=== PATIENT | female | born 1970 | race Caucasian/White ===

== ENCOUNTER 2020-06-01 09:39 | Outpatient (REF) | payer OTHER, SELFPAY ==
[2020-06-02 09:34] LABS: CT PCR NOT DETECTED (Not Detect.); NG PCR NOT DETECTED (Not Detect.)
[2020-06-02 09:51] LABS: BV Int Neg Control Negative (Negative); BV Int Pos Control Positive (Positive)
== END 2020-06-01 09:40 | disposition home or self-care (01) ==
LOC: HO.LAB 09:39
PROVIDERS: PCP Internal Medicine; Visit Provider Advanced Practice Midwife
DX: R10.9 Unspecified abdominal pain (principal); N90.89 Other specified noninflammatory disorders of vulva and perineum
CPT/HCPCS: 87480; 87491; 87510; 87591; 87660; 99202

== ENCOUNTER 2020-08-10 08:16 | Outpatient (REF) | payer OTHER, SELFPAY ==
--- NOTE | 2020-08-10 | US_ITS ---
EXAMINATION: US ABDOMEN COMPLETE CLINICAL INFORMATION: [place] (nonalcoholic steatosis). COMPARISON: CT abdomen and pelvis with and without contrast dated 12/07/2017. Renal ultrasound with bladder dated 06/04/2017. Ultrasound abdomen complete dated 05/31/2015. TECHNIQUE: Real-time imaging of the abdominal viscera. FINDINGS: PANCREAS: Normal. ABDOMINAL AORTA: The proximal, mid, and distal segments are normal in caliber. INFERIOR VENA CAVA: Visualized portions are normal. LIVER: There is mild increased echogenicity. The liver is normal in size. The liver contour is normal. No focal hepatic lesion. There is no intrahepatic biliary duct dilatation seen. The middle portal vein measures 1.2 cm. GALLBLADDER: Normal. The gallbladder is physiologically distended without evidence of stones, sludge, polyps, wall thickening or pericholecystic fluid. COMMON BILE DUCT: Normal in caliber measuring 0.5 cm in diameter. RIGHT KIDNEY: There is minimal cortical thinning with increased echogenicity. No renal calculi or focal parenchymal lesions. The kidney measures 12.5 cm in maximum dimension. LEFT KIDNEY: There is minimal cortical thinning with increased echogenicity No renal calculi or focal parenchymal lesions. The kidney measures 12.6 cm in maximum dimension. SPLEEN: Normal. The spleen measures 12.4 cm in maximum dimension. FREE FLUID: None. US/US abdomen complete IMPRESSION: Mild hepatic steatosis. No focal lesion. The middle portal vein is mildly prominent measuring 1.2 cm. Mild cortical thinning and increased echogenicity in both kidneys. No echogenic stones or hydronephrosis.
== END 2020-08-10 08:17 | disposition home or self-care (01) ==
LOC: HO.HMGCX 08:16
PROVIDERS: PCP Internal Medicine; Visit Provider Internal Medicine
DX: K75.81 Nonalcoholic steatohepatitis (NASH) (principal)
CPT/HCPCS: 76700

== ENCOUNTER 2021-01-18 08:51 | Outpatient (REF) | payer OTHER, SELFPAY ==
--- NOTE | ~2021-01-18 | US_ITS ---
EXAMINATION: US THYROID CLINICAL INFORMATION: Nontoxic multinodular goiter. COMPARISON: Ultrasound soft tissue head/neck same date. TECHNIQUE: Linear transducer grayscale and color Doppler examination with attention to the region of the thyroid. FINDINGS: SIZE: Measurements of the thyroid lobes and nodules are given in sagittal, anteroposterior and transverse dimensions respectively. Right Thyroid Lobe: 5.7 x 1.4 x 1.5 cm, volume 6.5 mL. Parenchyma: The gland echotexture is homogeneous. Thyroid vascularity is normal. Left Thyroid Lobe: 7.2 x 3.4 x 3.0 cm, volume 39.0 mL. Parenchyma: The gland echotexture is heterogeneous. Thyroid vascularity is normal. Isthmus: 0.5 cm in maximum AP dimension. Estimated total number of nodules greater than or equal to 1 cm: 2. Tax Clerk nodules are described as follows: 1. Location: Right lower pole. Size: 0.6 x 0.4 x 0.5 cm, volume 0.07 mL. Nodule characteristics: Composition: Solid (2). Echogenicity: Hyperechoic (1). Shape: Not taller than wide (0). Margins: Smooth (0). Echogenic Foci: None (0). ACR TI-RADS total points: 3 ACR TI-RADS category: 3 2. Location: Left mid pole. Size: 1.8 x 1.2 x 1.3 cm, volume 1.48 mL. Nodule characteristics: Composition: Mixed cystic and solid (1). Echogenicity: Hyperechoic (1). Shape: Not taller than wide (0). Margins: Smooth (0). Echogenic Foci: None (0). ACR TI-RADS total points: 3 ACR TI-RADS category: 3 3. Location: Left mid pole/lower pole. Size: 3.9 x 3.4 x 3.7 cm, volume 25.1 mL. Nodule characteristics: Composition: Solid/almost completely solid (2). Echogenicity: Isoechoic (1). Shape: Not taller than wide (0). Margins: Smooth (0). Echogenic Foci: None (0). ACR TI-RADS total points: 4 ACR TI-RADS category: 4 NODES: No lymphadenopathy is seen in the tissue surrounding the thyroid gland. US/US thyroid IMPRESSION: Enlarged left lobe. Bilateral thyroid nodules. Fine-needle aspiration of the largest nodule in the left mid to lower pole recommended. ACR TI-RADS RECOMMENDATION REFERENCE: Ultrasound-guided fine-needle aspiration, followup ultrasound, no further follow up. * TR1 (0 point) and TR 2 (2 points): No FNA or follow up * TR3 (3 points): FNA if more than or equal to 2.5 cm in maximum dimension, followup ultrasound in 1, 3 and 5 years if 1.5 to 2.4 cm in maximum dimension. * TR4 (4-6 points): FNA if more than or equal to 1.5 cm in maximum dimension, followup ultrasound in 1, 2, 3 and 5 years if 1 to 1.4 cm in maximum dimension. * TR5 (more than or equal to 7 points): FNA if more than or equal to 1 cm in maximum dimension, followup ultrasound every year for 5 years if 0.5 to 0.9 cm in maximum dimension. * TR3, TR4 or TR5 nodules that are below the size threshold for follow up receive no follow up.
--- NOTE | ~2021-01-18 | US_ITS ---
EXAMINATION: US SOFT TISSUE NECK CLINICAL INFORMATION: Enlarged lymph node COMPARISON: Thyroid ultrasound the same day TECHNIQUE: Ultrasound of the neck soft tissues is performed with high- frequency gale-scale imaging and color Doppler. FINDINGS: RIGHT NECK SOFT TISSUES: Scattered architecturally normal nodes are present. The nodes show normal fatty hilus, normal cortical thickness, and no cystic change or calcification. No abnormal color flow. The largest nodes are as follows: Level 3: 1.2 x 0.4 x 0.9 cm. Normal vikram architecture. Level 1A: 0.8 x 0.5 x 0.9 cm. Normal vikram architecture. LEFT NECK SOFT TISSUES: Scattered architecturally normal nodes are present. The nodes show normal fatty hilus, normal cortical thickness, and no cystic change or calcification. No abnormal color flow. The largest nodes are as follows: Level 6: 2 x 1.1 x 1 cm. Normal vikram architecture. Level : cm. Normal vikram architecture. US/US soft tiss head and/or neck IMPRESSION: Normal-appearing bilateral cervical lymph nodes.
== END 2021-01-18 08:52 | disposition home or self-care (01) ==
LOC: HO.HMGCX 08:51
PROVIDERS: PCP Internal Medicine; Visit Provider General Practice
DX: L04.9 Acute lymphadenitis, unspecified (principal); R59.0 Localized enlarged lymph nodes; Z92.3 Personal history of irradiation
CPT/HCPCS: 76536

== ENCOUNTER 2021-02-08 13:00 | Outpatient (REF) | payer OTHER, SELFPAY ==
[2021-02-08 14:23] LABS: Hematocrit 38.2 % (37-47); Hemoglobin 12.6 g/dl (12.0-16.0); Mean Corpuscular Volume 84.9 fL (80-98); Platelet Count 193 X10*3/uL (160-400); Red Cell Distribution Width 12.9 % (11.0-16.0); White Blood Count 4.4 X10*3/uL (4.8-10.8)
[2021-02-08 14:42] LABS: Alanine Aminotransferase 56 U/L (0-31); Albumin Level 4.5 g/dL (3.5-5.0); Alkaline Phosphatase 76 U/L (39-117); Anion Gap 15 (12-20); Aspartate Amino Transferase 31 U/L (5-31); Bilirubin Total 0.2 mg/dL (0.0-1.0); Blood Urea Nitrogen 19 mg/dL (9-16); Calcium 9.6 mg/dL (8.4-10.2); Carbon Dioxide 26 mmol/L (22-29); Chloride 106 mmol/L (96-108); Estimated Glomerular Filt Rate > 60; Glucose Random 104 mg/dL (60-115); Potassium 3.8 mmol/L (3.3-5.1); Sodium 143 mmol/L (135-145); Total Protein 7.5 g/dL (6.5-8.0)
== END 2021-02-08 13:01 | disposition home or self-care (01) ==
LOC: HO.LAB 13:00
PROVIDERS: PCP Internal Medicine; Referring Provider Internal Medicine; Visit Provider Nurse Practitioner Family
DX: Z01.818 Encounter for other preprocedural examination (principal); K59.00 Constipation, unspecified
CPT/HCPCS: 36415; 80053; 85027

== ENCOUNTER 2021-03-03 14:48 | Outpatient (REF) | payer OTHER, SELFPAY ==
[2021-03-03 17:13] LABS: Albumin Level 4.5 g/dL (3.5-5.0); Calcium 9.2 mg/dL (8.4-10.2)
[2021-03-03 17:40] LABS: Free T4 (Free Thyroxine) 0.85 ng/dL (0.71-1.85); Thyroid Stimulating Hormone 1.14 uIU/mL (0.32-4.0); Vitamin D 25-OH Total 22.3 ng/mL (>30)
[2021-03-04 17:01] LABS: Calcium (PTHI) 9.5 mg/dL (8.6-10.4); PTHI 55 pg/mL (14-64)
== END 2021-03-03 14:49 | disposition home or self-care (01) ==
LOC: HO.LAB 14:48
PROVIDERS: PCP Internal Medicine; Visit Provider Internal Medicine
DX: E04.2 Nontoxic multinodular goiter (principal); E55.9 Vitamin D deficiency, unspecified; Z79.899 Other long term (current) drug therapy
CPT/HCPCS: 36415; 82040; 82306; 82310; 83970; 84439; 84443; 99202

== ENCOUNTER 2021-03-31 10:52 | Outpatient (REF) | payer OTHER, SELFPAY ==
--- NOTE | 2021-03-31 11:26 | P.BOP_ITS ---
Brief Operative Note Date of Service: 03/31/21 Pre-op diagnosis: Multinodular Thyroid Procedure: This is doctor Gisela Barraza. This is an ultrasound-guided fine-needle aspiration report. Date of Examination: 03/31/2021 Indication: Multinodular Thyroid Porcedure: Procedure was explained to the patient. Alternatives, the risk and benefits were discussed. Written consent was obtained. A time-out was also obtained. After sterile preparation, fine-needle aspiration of a 1.8 cm left mid pole thyroid nodule was performed using direct ultrasound guidance to confirm accurate needle placement. Four aspirations were made using 27 gauge needles. Samples were submitted for cytology. One pass was dedicated for [employer] sequencing it infrastructure manager testing. Our attention was then turned to the left lower pole. Fine-needle aspiration of a 3.9 cm left lower pole thyroid nodule was performed using direct ultrasound guidance to confirm accurate needle placement. Four aspirations were made using 27 gauge needles. Samples were submitted for cytology. One pass was dedicated for [employer] Gene sequencing it infrastructure manager testing. An additional pass was made using a 25 guage needle with aspiration of 6 ml of serosanguinous cystic material from within the nodule. This was sent for cytology. The patient tolerated the procedure well. Aftercare instructions were provided. Impression: Uncomplicated fine needle aspiration biopsy of a 1.8 cm left mid p ole thyroid nodule and a 3.9 cm left lower pole thyroid nodule under ultrasound guidance. Surgeon: Gisela Barraza, DO Was an Cleaning Machine Operator used for this Procedure?: No Estimated blood loss (mL): 0
== END 2021-03-31 10:53 | disposition home or self-care (01) ==
LOC: HO.US 10:52
PROVIDERS: PCP Internal Medicine; Visit Provider Internal Medicine
DX: E04.2 Nontoxic multinodular goiter (principal)
CPT/HCPCS: 10005; 10006; 88172; 88173; 88305

== ENCOUNTER → 2021-04-14 09:50 | Outpatient (BNVA) | payer OTHER, SELFPAY | PROVIDERS: PCP Internal Medicine; Visit Provider Internal Medicine ==

== ENCOUNTER 2024-03-04 10:05 | Outpatient (AMB) | payer OTHER, SELFPAY ==
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
[2024-03-04 10:18] VITALS: BP 117/57; PULSE 76; BMI 35.5
== END 2024-03-04 10:50 | disposition home or self-care (01) ==
PROVIDERS: PCP Internal Medicine; Visit Provider Nurse Practitioner Family
DX: R10.11 Right upper quadrant pain (principal); K58.2 Mixed irritable bowel syndrome; R10.13 Epigastric pain; K21.9 Gastro-esophageal reflux disease without esophagitis
CPT/HCPCS: 99204

== ENCOUNTER → 2024-03-04 10:05 | Outpatient (BNVA) | payer OTHER, SELFPAY | PROVIDERS: PCP Internal Medicine; Visit Provider Nurse Practitioner Family ==

== ENCOUNTER 2024-03-12 10:24 | Outpatient (REF) | payer OTHER, SELFPAY ==
[2024-03-12 12:27] LABS: Alanine Aminotransferase 34 U/L (0-31); Albumin Level 4.5 g/dL (3.5-5.0); Alkaline Phosphatase 66 U/L (39-117); Anion Gap 10 (12-20); Aspartate Amino Transferase 20 U/L (5-31); Bilirubin Total 0.5 mg/dL (0.0-1.0); Blood Urea Nitrogen 16 mg/dL (9-16); Calcium 9.7 mg/dL (8.4-10.2); Carbon Dioxide 32 mmol/L (22-29); Chloride 105 mmol/L (96-108); Estimated Glomerular Filt Rate > 60; Glucose Random 99 mg/dL (60-115); Potassium 3.4 mmol/L (3.3-5.1); Sodium 144 mmol/L (135-145); Total Protein 7.3 g/dL (6.5-8.0)
== END 2024-03-12 10:25 | disposition home or self-care (01) ==
LOC: HO.LAB 10:24
PROVIDERS: Visit Provider Nurse Practitioner Family
DX: K21.9 Gastro-esophageal reflux disease without esophagitis (principal)
CPT/HCPCS: 36415; 80053

== ENCOUNTER → 2024-04-11 07:44 | Outpatient (REF) | payer OTHER, SELFPAY ==
--- NOTE | ~2024-04-11 | NM_ITS ---
EXAMINATION: EMILY BILIARY TRACT HEPATOBILIARY IMAGING - CCK INFUSION CLINICAL HISTORY: 53 years old Female with right upper quadrant pain TECHNIQUE: 5 mCi Tc-99m Mebrofenin was injected intravenously. Static planar images of the abdomen were obtained in the left anterior oblique views at 60 minutes. 1.8 mcg Sincalide (CCK) was infused intravenously over 60 minutes, while dynamic images of the abdomen were obtained in the left anterior oblique view. COMPARISON: None FINDINGS: At 60 minutes, there is visualization of gallbladder and transit of radiotracer into small bowel. After CCK infusion, there is good contraction of gallbladder, the ejection fraction is 84 percent (the normal ejection fraction is greater than 38 percent). (____) NM/NM hepatobiliary w pharm IMPRESSION: No evidence of acute cholecystitis or common bile duct obstruction. Electronically signed by: Libia Goldstein MD 04/11/2024 08:57 PM EDT
== END ==
LOC: HO.NUCMED 07:44
PROVIDERS: Visit Provider Nurse Practitioner Family
DX: R10.11 Right upper quadrant pain (principal)
CPT/HCPCS: 78227; A9537; J2805

== ENCOUNTER 2024-08-15 11:14 | Outpatient (AMB) | payer OTHER, SELFPAY ==
--- NOTE | 2024-08-15 11:15 | MHC.OFFVIS ---
Vital Signs 08/15/24 11:16 Height 5 ft 3 in Weight 203 lb 4.259 oz BMI 36.0 BP 126/64 Blood Pressure Location Rt brachial Position Sitting Pulse 66 Pulse Source Pulse Oximeter Pulse Oximetry (%) 98 Oxygen Delivery Method Room Air Intake Visit Reasons: 4 Month Follow Up Intake Note: ESTABLISHED PATIENT for Abd pain mgmt FUV. Review results of imaging and labs. Chief Complaint; RUQ pain still present as reported at last visit. Cramping/Spasm type pain, pt denies burning. Occasional nausea. Pt still taking pantoprazole daily w/o difficulty. Pt denies any additional sx or concerns. Tire Mold Engraver Required: Yes Tire Mold Engraver Services: Tire Mold Engraver Present Tire Mold Engraver Name: Mary [id number] Information Interpreted: clinical only Accompanied by: Self / Same As Patient Allergies ciprofloxacin [From CIPRO] Allergy (Intermediate, Verified 08/15/24 11:24) RASH/ITCHING/SWELLING metronidazole [From Metrogel] Allergy (Intermediate, Verified 08/15/24 11:24) RASH clarithromycin [Biaxin] Allergy (Unknown, Verified 08/15/24 11:24) GI upset, KOCH, bitter taste HPI HPI 4 Month Follow Up: Details: LAST VISIT Postprandial abdominal pain in right upper quadrant IBS (irritable bowel syndrome) Postprandial epigastric pain GERD (gastroesophageal reflux disease) Plan Will send patient for labs. Will order HIDA scan. Patient was encouraged to avoid dietary triggers. Avoid food that is high in fat or fried. High-fiber diet recommended. Patient may take [id number] her fiber supplements with probiotics. Patient will start pantoprazole in the morning to help with epigastric pain and reflux. Patient will return in the office in 4 months, sooner on as needed basis. She is agreeable to this plan and verbalizes understanding of instructions. She was given the opportunity to ask questions and all questions answered. ? Thank you for allowing me to participate in her care Orders Orders NM hepatobiliary w pharm Today R10.11 Comprehensive Met. Panel Today K21.9 Medications New pantoprazole 20 mg PO DAILY 30 tabs 1RF TODAY'S VISIT Patient is here today for follow-up. Patient reports that she continues to have a right upper quadrant pain radiating to her mid chest and her right upper back. Patient reports that the pain feels squeezing and sharp. Pain usually happens after she eats something greasy or spicy. Patient is taking pantoprazole, however she does not have acid reflux, however she continues with pain. Patient had bread with cream cheese and salami and 2 hours later she is developing the pain. Patient reports that same thing happened to her brother and sister. They both had cholecystectomies due to the symptoms, however that did not take the pain away. Any time they have anything spicy or fried they have the symptoms. Patient had abdominal ultrasound done last year in February by her PCP. We have received the fax and results. I have reviewed and the gallbladder wall is thin without any slushor stones. Patient was found to have hepatomegaly and splenomegaly on the ultrasound. Last liver enzymes ALT elevated and normal AST. Patient was seen by someone to help them lose way at [facility], was given Wegovy, however after 4 weeks patient had epigastric pain but no change in her weight. Patient stopped Wegovy [facility] Medical History HTN (hypertension) Vitamin D deficiency Multinodular thyroid Vulvar irritation Surgical History Hx of colonoscopy History of esophagogastroduodenoscopy (EGD) Hx of tubal ligation Family History Father Colon cancer Sister Cervical cancer Paternal Grandmother Ovarian cancer Mother History of kidney problems Social History Alcohol intake: never Patient Tobacco Use Status: Tobacco use Unknown Sexual orientation: Straight/Heterosexual Gender identity: Female Review of Systems Const Denies weight gain and Denies weight loss Card Reports no additional complaints Resp Reports no additional complaints GI Reports abdominal pain (RUQ), Denies belching, Denies melena, Denies bloating, Denies change in bowel habits, Reports constipation, Reports dyspepsia (Occasional), Reports heartburn, Reports loose stools, Denies nausea and Denies vomiting Reports no additional complaints Neuro Reports no additional complaints Psych Reports no additional complaints Physical Exam Vital Signs: Last Vital Signs Pulse 66 08/15/24 11:16 BP 126/64 08/15/24 11:16 Pulse Ox 98 08/15/24 11:16 Oxygen Delivery Method Room Air 08/15/24 11:16 BMI result Body Mass Index 36.0 Const General: healthy appearing and no acute distress Nutritional Appearance: obese Orientation/consciousness: patient oriented x3 Resp Auscultation: clear to auscultation bilaterally Cardio Rate: regular rate GI Inspection: Yes normal to inspection, No distended and Yes obesity Palpation (GI): No hepatosplenomegaly present Auscultation: normal bowel sounds Skin General skin exam: elasticity normal, turgor normal and dry skin Neuro General: patient oriented x3 Results Reviewed Results Reviewed: Laboratory Tests 03/12/24 10:46 Total Bilirubin 0.5 AST 20 ALT 34 H Alkaline Phosphatase 66 HIDA SCAN FINDINGS: At 60 minutes, there is visualization of gallbladder and transit of radiotracer into small bowel. After CCK infusion, there is good contraction of gallbladder, the ejection fraction is 84 percent (the normal ejection fraction is greater than 38 percent). Assessment & Plan Assessment & Plan (1) Postprandial abdominal pain in right upper quadrant: Code(s): R10.11 - Right upper quadrant pain (2) IBS (irritable bowel syndrome): Code(s): K58.9 - Irritable bowel syndrome, unspecified Qualifiers: Irritable bowel syndrome type: without diarrhea Qualified Code(s): K58.9 - Irritable bowel syndrome, unspecified (3) Postprandial epigastric pain: Code(s): R10.13 - Epigastric pain (4) GERD (gastroesophageal reflux disease): Code(s): K21.9 - Gastro-esophageal reflux disease without esophagitis Qualifiers: Esophagitis presence: esophagitis presence not specified Qualified Code(s): K21.9 - Gastro-esophageal reflux disease without esophagitis Plan Patient continues to have epigastric pain and right upper quadrant pain 1-2 hours after she eats. HIDA scan was negative for any acute findings. Patient had ultrasound few months ago that was normal. No cholelithiasis or cholecystitis found. Most likely this is not very well controlled GERD. Patient does admit to be eating food like salami, sometimes fried food. Will repeat liver panel, lipase, vitamin-D, B12 and folate. Will do abdominal ultrasound with elastography. Will start her on Nexium and stop pantoprazole. Patient was encouraged to avoid eating late at night and avoid dietary triggers. Staying upright for minimum 3 hours after meals discussed with patient. Patient will return in 6 months, however she will call our office if her symptoms will get worse. Patient was encouraged to stay on low-fat, low-salt, low carb and high-protein diet. Patient is agreeable to current plan of care and verbalizes understanding of instructions. She was given the opportunity to ask questions and all questions answered. Thank you for allowing me to participate in her care Orders: Orders Liver Panel Today R74.01 - Elevation of levels of liver transaminase levels TSH reflex Free T4 Today K59.00 - Constipation, unspecified Lipase Today R10.9 - Unspecified abdominal pain Vitamin D 25-OH (D2 and D3) Today E55.9 - Vitamin D deficiency, unspecified Vitamin B12 and Folate Today R19.7 - Diarrhea, unspecified US abdomen blake w elastography Today K76.0 - Fatty (change of) liver, not elsewhere classified Medications: New esomeprazole magnesium (Nexium) 40 mg PO DAILY 30 caps 5RF K21.9 - Gastro-esophageal reflux disease without esophagitis Discontinued pantoprazole Discontinued Reason: Doctor's Order 20 mg PO DAILY 30 tabs 1RF Coding Level of Care Code Est Pt Level 4 (28903) Complex EM visit Add On G2211 Diagnoses Postprandial abdominal pain in right upper quadrant R10.11 Irritable bowel syndrome without diarrhea K58.9 Irritable bowel syndrome type: without diarrhea Postprandial epigastric pain R10.13 Gastroesophageal reflux disease, unspecified whether esophagitis present K21.9 Esophagitis presence: esophagitis presence not specified Time Spent (min) 35 Comment 20 minutes spent with patient and additional 15 minutes spent reviewing her records
[2024-08-15 11:16] VITALS: BP 126/64; PULSE 66; O2SAT 98; BMI 36.0
--- OUTSIDE RECORDS SUMMARY | 2024-08-15 12:02 | XMS_ITS | Clinical Summary ---
Author Organization [employer] [facility] Address [address] [place] [address] Care Team Providers Care Deputy Chief Sheriff Name Role Phone Edgar Estrada MD Primary Care Provider [phone] Surgical History Surgery Date Site/Laterality Comments OTHER SURGICAL HISTORY PROCEDURE: DENIES PREVIOUS SURGERY; COMMENT: does not speak of any surgeries Medical History Medical History Date Comments Obesity, unspecified DX:Obesity, unspecified Family History Medical History Relation Name Comments Heart attack Father at the age of 7 9,Mother is 80 years old, possibly some cardiac condition Relation Name Status Comments Father Social History Tobacco Use Types Packs/Day Years Used Date Smoking Tobacco: Never Smokeless Tobacco: Never Alcohol Use Standard Drinks/Week Comments No 0 (1 standard drink = 0.6 oz pur e alcohol) Sex and Gender Information Value Date Recorded Sex Assigned at Not on file Gender Identity Not on file Sexual Orientation Not on file Obstetrics History Last Filed Vital Signs Vital Sign Reading Time Taken Comments Blood Pressure 125/75 11/08/2023 10:57 AM EDT Si tting R Arm Pulse 78 11/08/2023 10:57 AM EDT Temperature - - Respiratory Rate - - Oxygen Saturation - - Inhaled Oxygen Concentration - - Weight 89.4 kg (197 lb) 11/28/2023 9:34 AM EDT Height 160 cm (5' 3 ) 11/08/2023 10:57 AM EDT Body Mass Index 34.9 11/08/2023 10:57 AM EDT Plan of Treatment Health Maintenance Due Date Last Done Comments Hepatitis A Vaccines (1 of 2 - Risk 2-dose series) 12/09/1987 Hepatitis B Vaccines (1 of 3 - 19+ 3-dose series) 12/09/1987 Cervical Cancer Screening: P ap Smear 1989 DTaP,Tdap,and Td Vaccines (2 - Td or Tdap) 06/27/2011 06/27/2001 Zoster Vaccines (1 of 2) 2018 06/12/2001 Cholesterol Screening (Lipid Panel) 06/14/2022 Colorectal Cancer Screening: Colonoscopy 06/14/2022 Depression Screening 06/14/2022 HIV Screening 06/14/2022 Hepatitis C Screening 06/14/2022 Social Influencers of Health Screening 06/14/2022 Hypertension/CHF/CAD Annual BMP Blood Test 02/07/2024 COVID-19 Vaccine ( - 2023-2 5 season) 2024 Influenza Vaccine (#1) 2024 Breast Cancer Screening 05/02/2026 05/02/20 24, 07/20/2022 MMR Vaccines Aged Out 06/12/2001 No longer eligi ble based on patient's age to complete this topic Varicella Vaccines Aged Out 06/12/2001 No longer eligible based on patient's age to complete this topic HIB Vaccines Aged Out No longer eligi ble based on patient's age to complete this topic HPV Vaccines Aged Out No longer eligi ble based on patient's age to complete this topic IPV Vaccines Aged Out No longer eligi ble based on patient's age to complete this topic Meningococcal ACWY Vaccine Aged Out N o longer eligible based on patient's age to complete this topic Pneumococcal Vaccine: Pediatrics (0 to 5 Years) and At-Risk Patients (6 to 64 Years) Aged Out No longer eligible b ased on patient's age to complete this topic RSV Immunization Patients Under 20 months Aged Out No longer eligible b ased on patient's age to complete this topic Procedures Procedure Name Priority Date/Time Associated Diagnosis Comments JOSE SCREENING DIGITAL Routine 05/02/2024 7:01 AM EDT Encounter for screening mammogram for malignant neoplasm of breast from Last 3 Months or Most Recently Relevant to Health Maintenance Results * JOSE SCREENING DIGITAL (05/02/2024 7:01 AM EDT) Anatomical Region Laterality Modality Mammography 05/01/2024 10:4 5 AM EDT Narrative 05/02/2024 7:01 AM EDT [facility] Diagnostic Imaging Department [address] [place] [id number] Patient: ??BRANDEE,JAKI ?/Age/Sex: 1970 - 53 - F Unit#: ??[id number] ? Location/Status: ??SPDIMAM/REG CLI ? Mnemonic/Ordering Site: ??DIGSC/SPMAM Ordering Physician: ??MELBA JOLLEY ROD TAPE OPERATOR Jose Screening Digital - 05/01/24 - 1102 Report Status:Signed EXAM: ??SCREENING MAMMOGRAPHY, BILATERAL HISTORY: ??SCREENING. ??No additional history. COMPARISON: ??07/20/2022, 01/29/2017, 07/08/2014 TECHNIQUE: Synthesized CC and MLO projections of each breast. ??Tomosynthesis of each breast in the CC and MLO projections. ADDITIONAL IMAGING: None Computer-aided detection was employed with the iCAD ??profound AI 3-D. TISSUE DENSITY: There are scattered areas of fibroglandular density. (BI-RADS category B) FINDINGS: RIGHT BREAST: No suspicious mass. No suspicious calcification. No distortion. ?? There are small circumscribed oval masses which appear similar to previous. LEFT BREAST: No suspicious mass. No suspicious calcification. No distortion. ?? There are multiple small circumscribed oval masses which appear similar to previous. IMPRESSION: No mammographic evidence of malignancy. No suspicious interval change. A negative mammogram in the presence of a clinically suspicious palpable abnormality does not preclude the possibility of malignancy or alter the indications for biopsy. ASSESSMENT: BI-RADS 2: BENIGN RECOMMENDATION(S): 1: Routine screening mammogram BILATERAL in 1 year. Dictating Physician: ??Mumtaz HERRERA BRET MD Electronically Signed by: ??Mumtaz HERRERA BRET MD Dic Date/Time: ??05/02/24 0656 Sign date/Time: ??05/02/24 0701 Procedure Note Jovany Herrera MD - 05/13/2024 [facility] Diagnostic Imaging Department [address] [place], [place] [id number] Patient: JOSE DELUNALANA /Age/Sex: 1970 - 53 - F Unit#: [id number] Location/Status: [facility] CLI Mnemonic/Ordering Site: [facility] Ordering Physician: MELBA JOLLEY NP Jose Screening Digital - 05/01/24 - 1102 Report Status:Signed EXAM: SCREENING MAMMOGRAPHY, BILATERAL HISTORY: SCREENING. No additional history. COMPARISON: 07/20/2022, 01/29/2017, 07/08/2014 TECHNIQUE: Synthesized CC and MLO projections of each breast.Tomosynthesis of each breast in the CC and MLO projections. ADDITIONAL IMAGING: None Computer-aided detection was employed with the iCAD profound AI 3-D. TISSUE DENSITY: There are scattered areas of fibroglandular density.(BI-RADS category B) FINDINGS: RIGHT BREAST: No suspicious mass. No suspicious calcification. No distortion. Thereare small circumscribed oval masses which appear similar to previous. LEFT BREAST: No suspicious mass. No suspicious calcification. No distortion. Thereare multiple small circumscribed oval masses which appear similar toprevious. IMPRESSION: No mammographic evidence of malignancy. No suspicious interval change. A negative mammogram in the presence of a clinically suspicious palpable abnormality does not preclude the possibility of malignancy or alter the indications for biopsy. ASSESSMENT: BI-RADS 2: BENIGN RECOMMENDATION(S): 1: Routine screening mammogram BILATERAL in 1 year. Dictating Physician: Mumtaz HERRERA BRET MD Electronically Signed by: Mumtaz HERRERA BRET MD Dic Date/Time: 05/02/24 0656 Sign date/Time: 05/02/24 0701 Melba Barbour NP IMG BI PROCEDURES from Last 3 Months or Most Recently Relevant to Health Maintenance Care Teams Deputy Chief Sheriff Relationship Specialty Start Date End Date Edgar Estrada MD [address] [place], [place] [address] [address] PCP - General 06/22/23
--- OUTSIDE RECORDS SUMMARY | 2024-08-15 12:02 | XMS_ITS | Clinical Summary ---
Author Organization [employer] Address [address] [facility] [address] [place] [address] Care Team Providers Care Plant Engineering Manager Name Role Phone Unavailable Primary Care Provider Unavailabl e Social History Tobacco Use Types Packs/Day Years Used Date Smoking Tobacco: Never Assessed Comments Unknown Sex and Gender Information Value Date Recorded Sex Assigned at Female 05/15/2022 10:35 AM EDT Legal Sex Female 10:35 AM EDT Gender Identity Choose not to disclose 10:35 AM EDT Sexual Orientation Choose not to disclose 2021 10:35 AM EDT Last Filed Vital Signs Vital Sign Reading Time Taken Comments Blood Pressure 138/72 12/27/2020 12:06 AM EDT Pulse 76 12/27/2020 12:06 AM EDT Temperature - - Respiratory Rate - - Oxygen Saturation - - Inhaled Oxygen Concentration - - Weight 95.3 kg (210 lb) 12/27/2020 12:06 AM EDT Height 160.4 cm (5' 3.13 ) 12/27/2020 12:06 AM E DT Body Mass Index 37.05 12/27/2020 12:06 AM EDT Plan of Treatment Health Maintenance Due Date Last Done Comments CT Colonography 1970 Colonoscopy 1968 Colorectal Cancer Screening 1970 Depression Screening 1970 FIT DNA/Cologuard 1970 FIT 1968 FOBT 1970 Sigmoidoscopy 1970 Alcohol/Substance Use Screening 1980 Tobacco Screening 1980 Hepatitis B Vaccines (1 of 3 - 19+ 3-dose series) 12/09/1987 Mammogram 2008 Pneumococcal Vaccine: 50+ Ye ars (1 of 1 - PCV) 2018 Zoster Vaccines (1 of 2) 2018 Cervical Cancer Screening 07/31/2023 HPV/Cotest 07/31/2023 07/30/2018 Pap Smear 07/31/2023 07/31/2018 COVID-19 Vaccine (1 - 2023-2 5 season) 2024 Influenza Vaccine (#1) 2024 DTaP/Tdap/Td Vaccines (2 - T d or Tdap) 01/10/2027 01/10/2017 RSV Patients and Pa tients Aged 60 years or older (1 - 1-dose 75+ series) 12/09/2043 HIB Vaccines Aged Out No longer eligi ble based on patient's age to complete this topic HPV Vaccines Aged Out No longer eligi ble based on patient's age to complete this topic Hepatitis A Vaccines Aged Out No long er eligible based on patient's age to complete this topic IPV Vaccines Aged Out No longer eligi ble based on patient's age to complete this topic Meningococcal Vaccine Aged Out No mindi daniel eligible based on patient's age to complete this topic Pneumococcal Vaccine: Pediat rics (0 to 5 Years) and At-Risk Patients (6 to 49) Years) Aged Out No longer elig ible based on patient's age to complete this topic RSV under 20 months Aged Out No longe r eligible based on patient's age to complete this topic Rotavirus Vaccines Aged Out No longer eligible based on patient's age to complete this topic Procedures Procedure Name Priority Date/Time Associated Diagnosis Comments PAP/HPV Routine 07/31/2018 12:00 AM EST [facility] HISTORICAL HPV MRNA E6/E7 Routine 07/30/2018 9:10 AM EST from Last 3 Months or Most Recently Relevant to Health Maintenance Results * Pap Smear (07/31/2018 12:00 AM EST) Historical Provider HEALTH MAINTENANCE Final Result * HPV mRNA E6/E7 (07/30/2018 9:10 AM EST) HPV mRNA E6/E7 Not Detected NOT DETECTED [facility] Comment: This test was performed using the APTIMA(R) HPV Assay ([employer] This assay detects E6/E7 viral messenger RNA (mRNA) from 14 high-risk HPV types (16,18,31,33,35,39,45,51, 52,56,58,59,66,68). For additional information please refer to: http://education.[employer]/faq/VRB097h0 (This link is being provided for informational/ educational purposes only.) The analytical performance characteristics of this assay have been determined by [employer] [place], [place]. The modifications have not been cleared or approved by the FDA. This assay has been validated pursuant to the CLIA regulations and is used for clinical purposes. Test Performed by [facility], [employer] [facility], [address] [place] [address] Damion Thomas M.D., Ph.D., Director of Laboratories , CLIA [id number] Please note: ??Effective 03/27/2016, HPV testing will be performed using [employer]'s APTIMA test which targets mRNA. Detecting mRNA instead of DNA, as in older methods, offers significant improvements in specificity. 07/30/2018 9:10 AM EST us Vianey Ortega CNM HISTORICAL/NON ORDERABLE LABS Final Result [facility] Anywhere [address] from Last 3 Months or Most Recently Relevant to Health Maintenance
--- OUTSIDE RECORDS SUMMARY | 2024-08-15 12:02 | XMS_ITS | Encounter Summary ---
Author Organization [employer] Address [address] [place] [address] [address] [place] [address] Care Team Providers Care Bingo Checker Name Role Phone Michele Castrejon MD Primary Care Provider [phone] Encounter Details Date Type Department Care Team (Late st Contact Info) Description 11/27/2022 Abstract [facility] MED [facility] PEDS [address] [place], [place] [phone] Michele Castrejon MD [address] [place], [place] [phone] Social History Tobacco Use Types Packs/Day Years Used Date Smoking Tobacco: Never Assessed Comments Unknown Sex and Gender Information Value Date Recorded Sex Assigned at Female 05/15/2022 10:35 AM EDT Legal Sex Female 10:35 AM EDT Gender Identity Choose not to disclose 10:35 AM EDT Sexual Orientation Choose not to disclose 2021 10:35 AM EDT documented as of this encounter Plan of Treatment Not on file documented as of this encounter Procedures Procedure Name Priority Date/Time Associated Diagnosis Comments HM PAP/HPV Routine 07/31/2018 12:00 AM EST documented in this encounter Results * Hm Pap Smear (07/31/2018 12:00 AM EST) us Historical Provider HEALTH MAINTENANCE Final Result documented in this encounter Visit Diagnoses Not on filedocumented in this encounter Care Teams Bingo Checker Relationship Specialty Start Date End Date Michele Castrejon MD [address] [place], [place] [phone] PCP - General Internal Medicine 05/03/20 06/13/23 documented as of this encounter
== END 2024-08-15 15:50 | disposition home or self-care (01) ==
PROVIDERS: Visit Provider Nurse Practitioner Family
DX: R10.11 Right upper quadrant pain (principal); K58.9 Irritable bowel syndrome, unspecified; R10.13 Epigastric pain; K21.9 Gastro-esophageal reflux disease without esophagitis
CPT/HCPCS: 99214; G2211

== ENCOUNTER 2024-09-03 11:37 | Outpatient (REF) | payer OTHER, SELFPAY ==
--- OUTSIDE RECORDS SUMMARY | 2024-09-03 12:16 | XMS_ITS | Encounter Summary ---
Author Organization [employer] Address [address] [place] [address] [address] [place] [address] Care Team Providers Care Petroleum Blending Plant Operator Name Role Phone Michele Castrejon MD Primary Care Provider Encounter Details Date Type Department Care Team (Late st Contact Info) Description 11/27/2022 Abstract [facility] MED [facility] PEDS [address] [place], [place] [phone] Michele Castrejon MD [address] [place], [place] [phone] Social History Tobacco Use Types Packs/Day Years [...] on filedocumented in this encounter Care Teams Petroleum Blending Plant Operator Relationship Specialty Start Date End Date Michele Castrejon MD [address] [place], [place] [phone] PCP - General Internal Medicine 05/03/20 06/13/23 documented as of this encounter
--- OUTSIDE RECORDS SUMMARY | 2024-09-03 12:16 | XMS_ITS | Clinical Summary ---
Author Organization [employer] Address [address] [facility] 7[address] [place] [address] Care Team Providers Care Mine Car Mechanic Name Role Phone Unavailable Primary Care Provider [...] Comments PAP/HPV Routine 07/31/2018 12:00 AM EST [facility] HISTORICAL HPV MRNA E6/E7 Routine 07/30/2018 9:10 AM EST from Last 3 Months or Most Recently Relevant to Health Maintenance Results * Pap Smear (07/31/2018 12:00 AM EST) Historical Provider HEALTH MAINTENANCE Final Result * HPV mRNA E6/E7 (07/30/2018 9:10 AM EST) HPV mRNA E6/E7 Not Detected NOT DETECTED [facility] Comment: This test was performed using the APTIMA(R) HPV Assay ([employer] This assay detects E6/E7 viral messenger RNA (mRNA) from 14 high-risk HPV types (16,18,31,33,35,39,45,51, 52,56,58,59,66,68). For additional information please refer to: http://education.Jildy.Bancha/faq/IXB173z0 (This link is being provided for informational/ educational purposes only.) The analytical performance characteristics of this assay have been determined by [employer] [place], [place]. The modifications have not been cleared or approved by the FDA. This assay has been validated pursuant to the CLIA regulations and is used for clinical purposes. Test Performed by [facility], [employer] [facility], [address] [place] [address] Damion Thomas M.D., Ph.D., Director of Laboratories , CLIA [id number] Please note: ??Effective 03/27/2016, HPV testing will be performed using [employer]'s APTIMA test which targets mRNA. Detecting mRNA instead of DNA, as in older methods, offers significant improvements in specificity. 07/30/2018 9:10 AM EST us Vianey Ortega CNM HISTORICAL/NON ORDERABLE LABS Final Result [facility] [address] from Last 3 Months or Most Recently Relevant to Health Maintenance
--- OUTSIDE RECORDS SUMMARY | 2024-09-03 12:16 | XMS_ITS | Clinical Summary ---
Author Organization [facility] [employer] [facility] Address [address] [place] [address] Care Team Providers Care Manager Data Warehouse Name Role Phone Edgar Estrada MD Primary Care Provider [phone] Surgical History Surgery Date Site/Laterality Comments OTHER [...] drink = 0.6 oz pur e alcohol) Comments Unknown Sex and Gender Information Value Date Recorded Sex Assigned at Not on file Legal Sex Female 3:42 PM EST Gender Identity Not on file Sexual Orientation [...] (2 - Td or Tdap) 06/27/2011 06/27/2001 Pneumococcal Vaccine: 50+ Years (1 of 1 - PCV) 2018 Zoster Vaccines (1 of 2) 2018 06/12/2001 [...] patient's age to complete this topic Meningococcal B Vacine Aged Out No lo nger eligible based on patient's age to complete [...] Recently Relevant to Health Maintenance Results * [facility] SCREENING DIGITAL (05/02/2024 7:01 AM EDT) Anatomical Region Laterality Modality Mammography 05/01/2024 10:4 5 AM EDT Narrative 05/02/2024 7:01 AM EDT [facility] Diagnostic Imaging Department [address] [place] [address] Patient: ??JAKI DELUNA ?/Age/Sex: 1970 - 53 - F Unit#: ??[id number] ? Location/Status: ??SPDIMAM/REG CLI ? Mnemonic/Ordering Site: ??DIGSC/SPMAM Ordering Physician: ??MELBA JOLLEY PYTHON WEB DEVELOPER [facility] Screening Digital - 05/01/24 - 1102 Report [...] Procedure Note Jovany Herrera MD - 05/13/2024 [facility] Diagnostic Imaging Department [address] [place] [address] Patient: MARIA VICTORIA DELUNAETLANA /Age/Sex: 1970 - 53 - F Unit#: [id number] Location/Status: [facility]/REG CLI Mnemonic/Ordering Site: [facility] Ordering Physician: MELBA JOLLEY NP Jose Screening [...] Date/Time: 05/02/24 0656 Sign date/Time: 05/02/24 0701 us Melba Barbour NP IMG BI PROCEDURES Final Resul t from Last 3 Months or Most Recently Relevant to Health Maintenance Care Teams Manager Data Warehouse Relationship Specialty Start Date End Date Edgar Estrada MD [address] [place] [phone] PCP - General 06/22/23
[2024-09-03 12:49] LABS: Alanine Aminotransferase 41 U/L (0-31); Albumin Level 4.3 g/dL (3.5-5.0); Alkaline Phosphatase 69 U/L (39-117); Aspartate Amino Transferase 25 U/L (5-31); Bilirubin Direct 0.1 mg/dL (0.0-0.5); Bilirubin Total 0.4 mg/dL (0.0-1.0); Lipase 27 U/L (8-78); Total Protein 7.5 g/dL (6.5-8.0)
[2024-09-03 12:56] LABS: TSH reflex Free T4 1.36 uIU/mL (0.32-4.0)
[2024-09-03 13:15] LABS: Vitamin B12 331 pg/mL (200-900)
[2024-09-07 12:18] LABS: Vitamin D 25-OH, D2 <4 ng/mL; Vitamin D 25-OH, D3 23 ng/mL; Vitamin D 25-OH, Total 23 ng/mL (30-100)
== END 2024-09-03 11:38 | disposition home or self-care (01) ==
LOC: HO.LAB 11:37
PROVIDERS: PCP Nurse Practitioner; Visit Provider Nurse Practitioner Family
DX: K59.00 Constipation, unspecified (principal); R10.9 Unspecified abdominal pain; R19.7 Diarrhea, unspecified; R74.01 Elevation of levels of liver transaminase levels; E55.9 Vitamin D deficiency, unspecified
CPT/HCPCS: 36415; 80076; 82306; 82607; 82746; 83690; 84443

== ENCOUNTER 2024-10-24 08:49 | Outpatient (REF) | payer OTHER, SELFPAY ==
--- NOTE | ~2024-10-24 | US_ITS ---
EXAMINATION: US ABDOMEN LIMITED WITH LIVER ELASTOGRAPHY CLINICAL INFORMATION: Fatty change of the liver. COMPARISON: 08/10/2020 Abdomen US. No prior elastography TECHNIQUE: Real-time imaging of the abdominal viscera. Noninvasive ultrasound liver fibrosis assessment is performed using [employer] point quantification shear wave elastography (2D-SWE) with a C5-2 MHz transducer. Multiple elastography samples are obtained. FINDINGS: PANCREAS: The visualized pancreatic head and body are normal in appearance. The remainder of the pancreas is obscured from visualization by the overlying bowel gas. LIVER: The liver demonstrates mildly increased size, with normal contour. There is diffusely increased hepatic echogenicity. There are foci of focal fatty sparing. No focal lesion or intrahepatic biliary duct dilatation. The right lobe measures 20.5 cm in length. The left lobe measures 3.6 cm in length. Portal flow is towards the liver (hepatopetal). Shear wave liver elastography median stiffness is 1.88 m/s (reference: normal median stiffness is 1.3 m/s or less). IQR/median stiffness to assess sampling precision is 0.03 (reference: good quality data set is IQR/median stiffness of 0.15 or less). GALLBLADDER: The gallbladder is physiologically distended without evidence of stones, sludge, polyps, wall thickening or pericholecystic fluid. COMMON BILE DUCT: Normal in caliber measuring 0.6 cm in diameter. RIGHT KIDNEY: No hydronephrosis. No renal calculi or focal parenchymal lesions. The kidney measures 11.8 cm in maximum dimension. FREE FLUID: None. US/US abdomen blake w elastography IMPRESSION: 1. Diffusely increased hepatic echogenicity, likely representing a mix of hepatocellular disease and steatosis. No suspicious focal lesion. 2. Liver elastography: Measurements are suggestive of compensated advanced chronic liver disease but need further test for confirmation. 3. Remainder of the examination is normal. REFERENCE: Society of Radiologists in Ultrasound Liver Stiffness Thresholds (2020): LIVER STIFFNESS THRESHOLDS: *Liver Stiffness equal or less than 1.3 m/s: High probability of being normal. *Liver Stiffness less than 1.7 m/s: In the absence of other known clinical signs, rules out compensated advanced chronic liver disease. *Liver Stiffness 1.7-2.1 m/s: Suggestive of compensated advanced chronic liver disease but need further test for confirmation. *Liver Stiffness over 2.1 m/s: Rules in compensated advanced chronic liver disease. *Liver Stiffness over 2.4 m/s: Suggestive of clinically significant portal hypertension. QUALITY OF DATA SET: *IQR/Median value equal or less than 0.15 implies a quality data set. *IQR/Median value over 0.15 implies a poor quality data set. SIGNIFICANT CHANGE FROM PRIOR EXAM: Significant change if liver stiffness measurement is 10% or greater from prior exam. OTHER CONSIDERATIONS: The stage of liver fibrosis may be overestimated in the setting of acute hepatitis, liver inflammation, elevated liver function tests, hepatic vascular congestion, obstructive cholestasis, non-fasting state, and infiltrative diseases such as amyloidosis and lymphoma. In some patients with NAFLD, the liver stiffness thresholds for compensated advanced chronic liver disease may be lower. In causes other than viral hepatitis and NAFLD, liver stiffness thresholds are not well established. Electronically signed by: Mohit Pichardo MD 10/24/2024 09:53 AM EDT
--- OUTSIDE RECORDS SUMMARY | 2024-10-24 09:00 | XMS_ITS | Encounter Summary ---
Author Organization [employer] Address [address] [place] [address] [address] [place] [address] Care Team Providers Care Life Enrichment Specialist Name Role Phone Michele Castrejon MD Primary Care Provider Encounter Details Date Type Department Care Team (Late st Contact Info) Description 11/27/2022 Abstract [facility]ED[facility] [address] [place], [place] [phone] Michele Castrejon MD [address] [place], [place] [phone] Social History Tobacco Use Types Packs/Day Years [...] on filedocumented in this encounter Care Teams Life Enrichment Specialist Relationship Specialty Start Date End Date Michele Castrejon MD [address] [place], [place] [phone] PCP - General Internal Medicine 05/03/20 06/13/23 documented as of this encounter
--- OUTSIDE RECORDS SUMMARY | 2024-10-24 09:00 | XMS_ITS | Clinical Summary ---
Author Organization [employer] Address [address] [facility] 7[address] [place] [address] Care Team Providers Care Bi Technical Lead Name Role Phone Unavailable Primary Care Provider [...] Comments PAP/HPV Routine 07/31/2018 12:00 AM EST [facility] HISTORICAL HPV MRNA E6/E7 Routine 07/30/2018 9:10 AM EST from Last 3 Months or Most Recently Relevant to Health Maintenance Results * Pap Smear (07/31/2018 12:00 AM EST) Historical Provider HEALTH MAINTENANCE Final Result * HPV mRNA E6/E7 (07/30/2018 9:10 AM EST) HPV mRNA E6/E7 Not Detected NOT DETECTED [facility] Comment: This test was performed using the APTIMA(R) HPV Assay ([employer] This assay detects E6/E7 viral messenger RNA (mRNA) from 14 high-risk HPV types (16,18,31,33,35,39,45,51, 52,56,58,59,66,68). For additional information please refer to: http://education.Kapture.Authentic8/faq/STX331w0 (This link is being provided for informational/ educational purposes only.) The analytical performance characteristics of this assay have been determined by [employer] [place], [place]. The modifications have not been cleared or approved by the FDA. This assay has been validated pursuant to the CLIA regulations and is used for clinical purposes. Test Performed by [facility], [employer] [facility], [address] [place] [address] Damion Thomas M.D., Ph.D., Director of Laboratories , CLIA [id number] Please note: ??Effective 03/27/2016, HPV testing will be performed using [employer]'s APTIMA test which targets mRNA. Detecting mRNA instead of DNA, as in older methods, offers significant improvements in specificity. 07/30/2018 9:10 AM EST us Vianey Ortega CNM HISTORICAL/NON ORDERABLE LABS Final Result [facility] Critical access hospital Anywhere [address] from Last 3 Months or Most Recently Relevant to Health Maintenance
--- OUTSIDE RECORDS SUMMARY | 2024-10-24 09:00 | XMS_ITS | Clinical Summary ---
Author Organization [facility] Address [address] [place] [address] Care Team Providers Care Cook Railroad Name Role Phone Edgar Estrada MD Primary Care Provider [phone] Surgical History Surgery Date Site/Laterality Comments OTHER [...] - 2023-2 5 season) 2024 Influenza Vaccine (Season Ended) 2025 Breast Cancer Screening 05/02/2026 05/02/20 24, 07/20/2022 [...] age to complete this topic Meningococcal B Vaccine Aged Out No l onger eligible based on patient's age to complete [...] Recently Relevant to Health Maintenance Results * [facility] SCREENING DIGITAL (05/02/2024 7:01 AM EDT) Anatomical Region Laterality Modality Mammography 05/01/2024 10:4 5 AM EDT Narrative 05/02/2024 7:01 AM EDT [facility] Diagnostic Imaging Department [address] [place] [address] Patient: ??JAKI DELUNA ?/Age/Sex: 1970 - 53 - F Unit#: ??[id number] ? Location/Status: ??SPDIMAM/REG CLI ? Mnemonic/Ordering Site: ??DIGSC/SPMAM Ordering Physician: ??MELBA JOLLEY EQUIPMENT SERVICE LEAD [facility] Screening Digital - 05/01/24 - 1102 [...] Procedure Note Jovany Herrera MD - 05/13/2024 [facility] Diagnostic Imaging Department [address] [place] [address] Patient: MARIA VICTORIA DELUNAETLANA /Age/Sex: 1970 - 53 - F Unit#: [id number] Location/Status: [facility]/REG CLI Mnemonic/Ordering Site: [facility] Ordering Physician: MELBA JOLLEY NP Jose [...] Recently Relevant to Health Maintenance Care Teams Cook Railroad Relationship Specialty Start Date End Date Edgar Estrada MD [address] [place] [phone] PCP - General 06/22/23
== END 2024-10-24 08:50 | disposition home or self-care (01) ==
LOC: HO.US 08:49
PROVIDERS: PCP Nurse Practitioner; Visit Provider Nurse Practitioner Family
DX: K76.0 Fatty (change of) liver, not elsewhere classified (principal)
CPT/HCPCS: 76705; 76981

== ENCOUNTER → 2024-10-24 08:51 | Outpatient (BNV) | payer OTHER, SELFPAY | PROVIDERS: PCP Nurse Practitioner; Visit Provider Radiology Diagnostic Radiology | DX: K76.0 Fatty (change of) liver, not elsewhere classified (principal) | CPT/HCPCS: 76705; 76981 ==

== ENCOUNTER 2025-02-11 09:38 | Outpatient (AMB) | payer OTHER, SELFPAY ==
[2025-02-11 09:39] VITALS: BP 134/70; PULSE 64; O2SAT 99; BMI 36.0
--- NOTE | 2025-02-11 09:39 | A.OFFVIS_ITS ---
Vital Signs 02/11/25 09:39 Height 5 ft 3 in Weight 203 lb BMI 36.0 BP 134/70 Blood Pressure Location Rt brachial Position Sitting Pulse 64 Pulse Source Pulse Oximeter Pulse Oximetry (%) 99 Oxygen Delivery Method Room Air Intake Visit Reasons: NEEDS 30 m; 6 mo gerd Intake Note: ESTABLISHED PATIENT for Abd pain mgmt FUV. Review results of imaging and labs. Chief Complaint; C.O. possible reaction to esomeprazole. Pt states that she had been doing well with the Rx for approximately 1 mos before having acute onset of abd pain. Pt stopped taking esomeprazole and the sx resolved. No additional sx or concerns at this time. Window Shade Cloth Sewer Required: No Window Shade Cloth Sewer Services: Window Shade Cloth Sewer Offered & Declined Accompanied by: Self / Same As Patient Allergies ciprofloxacin (From CIPRO) Allergy (Intermediate, Verified 02/11/25 09:39) RASH/ITCHING/SWELLING metronidazole (From Metrogel) Allergy (Intermediate, Verified 02/11/25 09:39) RASH clarithromycin (Biaxin) Allergy (Unknown, Verified 02/11/25 09:39) GI upset, KOCH, bitter taste HPI HPI NEEDS 30 m; 6 mo gerd: Details: LAST VISIT: Postprandial abdominal pain in right upper quadrant IBS (irritable bowel syndrome) Postprandial epigastric pain GERD (gastroesophageal reflux disease) Plan Patient continues to have epigastric pain and right upper quadrant pain 1-2 h ours after she eats. HIDA scan was negative for any acute findings. Patient had ultrasound few months ago that was normal. No cholelithiasis or cholecystitis found. Most likely this is not very well controlled GERD. Patient does admit to be eating food like salami, sometimes fried food. Will repeat liver panel, lipase, vitamin-D, B12 and folate. Will do abdominal ultrasound with elastography. Will start her on Nexium and stop pantoprazole. Patient was encouraged to avoid eating late at night and avoid dietary triggers. Staying upright for minimum 3 hours after meals discussed with patient. Patient will return in 6 months, however she will call our office if her symptoms will get worse. Patient was encouraged to stay on low-fat, low-salt, low carb and high- protein diet. Patient is agreeable to current plan of care and verbalizes understanding of instructions. She was given the opportunity to ask questions and all questions answered. ? Thank you for allowing me to participate in her care Orders Liver Panel Today R74.01 TSH reflex Free T4 Today K59.00 Lipase Today R10.9 Vitamin D 25-OH (D2 and D3) Today E55.9 Vitamin B12 and Folate Today R19.7 US abdomen blake w elastography Today K76.0 New esomeprazole magnesium (Nexium) 40 mg PO DAILY 30 caps 5RF K21.9 Discontinued pantoprazole Discontinued Reason: Doctor's Order 20 mg PO DAILY 30 tabs 1RF TODAY'S VISIT Patient is here today for follow-up. Patient reports that she has been doing well, however she continues to have occasional abdominal bloating and right upper quadrant pain. Patient was taking Nexium for about a month and then after that she was having pain no matter what she ate in the epigastric area. Patient stopped taking the medication and her pain went away. Patient continues to have right upper quadrant pain if she is eating anything greasy or fried. Patient states that she is trying to stay away from the type of food, however she states that it is hard for her to completely avoid. Patient denies any nausea or vomiting. Denies any dyspepsia, dysphagia or odynophagia. Had colonoscopy 2 years ago at [facility]. Patient denies any melena, hematochezia, unintentional weight loss or ribbon like stools [facility] Medical History HTN (hypertension) Vitamin D deficiency Multinodular thyroid Vulvar irritation Surgical History Hx of colonoscopy History of esophagogastroduodenoscopy (EGD) Hx of tubal ligation Family History Father Colon cancer Sister Cervical cancer Paternal Grandmother Ovarian cancer Mother History of kidney problems Social History Alcohol intake: never Patient Tobacco Use Status: Tobacco use Unknown Sexual orientation: Straight/Heterosexual Gender identity: Female Review of Systems Const Denies weight gain and Denies weight loss Card Reports no additional complaints Resp Reports no additional complaints GI Reports abdominal pain (RUQ), Denies belching, Denies melena, Denies bloating, Denies change in bowel habits, Reports constipation, Reports dyspepsia (Occasional), Reports heartburn, Reports loose stools, Denies nausea and Denies vomiting Reports no additional complaints Neuro Reports no additional complaints Psych Reports no additional complaints Physical Exam Vital Signs: Last Vital Signs Pulse 64 02/11/25 09:39 BP 134/70 02/11/25 09:39 Pulse Ox 99 02/11/25 09:39 Oxygen Delivery Method Room Air 02/11/25 09:39 BMI result Body Mass Index 36.0 Const General: healthy appearing and no acute distress Nutritional Appearance: obese Orientation/consciousness: patient oriented x3 Resp Auscultation: clear to auscultation bilaterally Cardio Rate: regular rate GI Inspection: Yes normal to inspection, No distended and Yes obesity Palpation (GI): No hepatosplenomegaly present Auscultation: normal bowel sounds Skin General skin exam: elasticity normal, turgor normal and dry skin Neuro General: patient oriented x3 Results Reviewed Results Reviewed: ABDOMINAL ULTRASOUND FOUND WITH LIVER ELASTOGRAPHY FINDINGS: PANCREAS: The visualized pancreatic head and body are normal in appearance. The remainder of the pancreas is obscured from visualization by the overlying bowel gas. LIVER: The liver demonstrates mildly increased size, with normal contour. There is diffusely increased hepatic echogenicity. There are foci of focal fatty sparing. No focal lesion or intrahepatic biliary duct dilatation. The right lobe measures 20.5 cm in length. The left lobe measures 3.6 cm in length. Portal flow is towards the liver (hepatopetal). Shear wave liver elastography median stiffness is 1.88 m/s (reference: normal median stiffness is 1.3 m/s or less). IQR/median stiffness to assess sampling precision is 0.03 (reference: good quality data set is IQR/median stiffness of 0.15 or less). GALLBLADDER: The gallbladder is physiologically distended without evidence of stones, sludge, polyps, wall thickening or pericholecystic fluid. COMMON BILE DUCT: Normal in caliber measuring 0.6 cm in diameter. RIGHT KIDNEY: No hydronephrosis. No renal calculi or focal parenchymal lesions. The kidney measures 11.8 cm in maximum dimension. FREE FLUID: None. US/US abdomen blake w elastography IMPRESSION: 1. Diffusely increased hepatic echogenicity, likely representing a mix of hepatocellular disease and steatosis. No suspicious focal lesion. 2. Liver elastography: Measurements are suggestive of compensated advanced chronic liver disease but need further test for confirmation. 3. Remainder of the examination is normal. Laboratory Tests 09/03/24 11:48 Total Bilirubin 0.4 Direct Bilirubin 0.1 AST 25 ALT 41 H Alkaline Phosphatase 69 25-OH Vitamin D Total 23 L Folate 10.0 Laboratory Tests 09/03/24 11:48 Lipase 27 Vitamin B12 331 TSH 1.36 Assessment & Plan Assessment & Plan (1) Postprandial abdominal pain in right upper quadrant: Code(s): R10.11 - Right upper quadrant pain (2) Irritable bowel syndrome: Code(s): K58.9 - Irritable bowel syndrome, unspecified Qualifiers: Irritable bowel syndrome type: with both diarrhea and constipation Qualified Code(s): K58.2 - Mixed irritable bowel syndrome (3) Postprandial epigastric pain: Code(s): R10.13 - Epigastric pain (4) Gastroesophageal reflux disease: Code(s): K21.9 - Gastro-esophageal reflux disease without esophagitis Qualifiers: Esophagitis presence: esophagitis presence not specified Qualified Code(s): K21.9 - Gastro-esophageal reflux disease without esophagitis Plan Patient will try Pepcid as needed. Avoid dietary triggers. Long discussion with patient about low-fat, low-salt low carb diet. He will repeat liver panel. If patient will have continued elevated liver enzymes will order more to rule out any out immune disorders that might be causing this. Patient otherwise will follow-up in 6 months we will repeat ultrasound again. She is agreeable to current plan of care and verbalizes understanding of instructions. She was given the opportunity to ask questions all questions answered. Thank you for allowing me to participate in her care Orders: Orders Liver Panel Today R74.01 - Elevation of levels of liver transaminase levels Medications: New famotidine (Pepcid) 20 mg PO DAILY 30 tabs 3RF K21.9 - Gastro-esophageal reflux disease without esophagitis Coding Level of Care Code Est Pt Level 3 (77334) Diagnoses Postprandial abdominal pain in right upper quadrant R10.11 Irritable bowel syndrome with both constipation and diarrhea K58.2 Irritable bowel syndrome type: with both diarrhea and constipation Postprandial epigastric pain R10.13 Gastroesophageal reflux disease, unspecified whether esophagitis present K21.9 Esophagitis presence: esophagitis presence not specified Time Spent (min) 30 Comment 20 minutes spent with patient and additional 10 minutes spent reviewing her records
--- OUTSIDE RECORDS SUMMARY | 2025-02-11 10:10 | XMS_ITS | Encounter Summary ---
Author Organization [employer] Address [address] [facility] [address]t [place] [address] Care Team Providers Care Transportation Engineering Technician Name Role Phone Michele Castrejon MD Primary Care Provider Encounter Details Date Type Department Care Team (Late st Contact Info) Description 11/27/2022 Abstract [facility] [address] [place], [place] [phone] Michele Castrejon MD [address] [place], [place] [phone] Social History Tobacco Use Types Packs/Day Years [...] on filedocumented in this encounter Care Teams Transportation Engineering Technician Relationship Specialty Start Date End Date Michele Castrejon MD [address] [place], [place] [phone] PCP - General Internal Medicine 05/03/20 06/13/23 documented as of this encounter
--- OUTSIDE RECORDS SUMMARY | 2025-02-11 10:10 | XMS_ITS | Encounter Summary ---
Author Organization [facility] Address [address] [place] [address] Care Team Providers Care Chief Mechanical Engineer Name Role Phone Edgar Estrada MD Primary Care Provider [phone] Encounter Details Date Type Department Care Team (Late st Contact Info) Description 10/31/[address] [facility] - Main Lab [address] [facility] [place] [id number] Lupis Guzman NP [address] [facility] [address] [place] [address] Dysuria Social History Tobacco Use Types Packs/Day Years Used Date Smoking Tobacco: Never Smokeless Tobacco: Never Alcohol Use Standard Drinks/Week Comments No 0 (1 standard drink = 0.6 oz pur e alcohol) Comments Unknown Sex and Gender Information Value Date Recorded Sex Assigned at Not on file Legal Sex Female 3:42 PM EST Gender Identity Not on file Sexual Orientation Not on file documented as of this encounter Plan of Treatment Not on file documented as of this encounter Procedures Procedure Name Priority Date/Time Associated Diagnosis Comments CULTURE URINE Routine 10/31/2024 12:00 AM EDT Dysuria documented in this encounter Results * Culture urine (10/31/2024 12:00 AM EDT) Culture, Urine No growth 11/02/2024 11:[address] [facility] Urine Urine specimen from urinary conduit / Unknown 10/31/2024 10/31/2024 6:47 PM EDT us Lupis Guzman FIRE EXTINGUISHER REPAIRER INSPECTOR LAB MICROBIOLOGY - GENERA L ORDERABLES Final Result [facility] [address] [place] [address], documented in this encounter Visit Diagnoses Diagnosis Dysuria documented in this encounter Care Teams Chief Mechanical Engineer Relationship Specialty Start Date End Date Edgar Estrada MD [address] [place] [phone] PCP - General 06/22/23 documented as of this encounter
--- OUTSIDE RECORDS SUMMARY | 2025-02-11 10:10 | XMS_ITS | Clinical Summary ---
Author Organization [facility] Address [address] [address] Phone Care Team Providers Care Horse Trainer Name Role Phone Fidelina Ibarra MD Primary Care Provide [phone] Social History Tobacco Use Types Packs/Day Years Used Date Smoking Tobacco: Never Assessed Education Answer Date Recorded Are you interested in more education? Not on nai e 11/11/2022 Are you concerned about learning? Not on file 11/11/2022 No 11/11/2022 No 11/11/2022 Digital Access Answer Date Recorded No 12/12/2022 No 12/12/2022 Reliable internet access at home? Not on file 12/12/2022 Device with a working camera? Not on file Comments Unknown Sex and Gender Information Value Date Recorded Sex Assigned at Not on file Legal Sex Female 6:07 PM EST Gender Identity Not on file Sexual Orientation Not on file Plan of Treatment Not on file Medical Devices Not on file Insurance [facility] [employer] [employer] PARTIAL [employer] Member Subscriber Plan / Payer (Ef fective 2021-Present) Name:Markuscammie Shanae Relation to Subscriber:Self Name:Shanae Deluna Payer ID:Not on file Group ID:Not on file Type:Medicaid Address: [address] [facility] Address: [address] [address] PARTIAL Member Subscriber Plan / Payer (Ef fective 2021-Present) Name:Markuscammie Shanae Relation to Subscriber:Self Name:Shanae Deluna Payer ID:Not on file Group ID:Not on file Type:Medicaid Address: [address] Member Subscriber Plan / Payer (Ef fective 2021-) Name:EdnaagustínEmilyShanae Relation to Subscriber:Self Name:Donald Delunaa Payer ID:Not on file Group ID:Not on file Type:Medicaid Address: [address] Member Subscriber Plan / Payer (Ef fective 2021-Present) Name:Shanae Deluna Relation to Subscriber:Self Name:Shanae Deluna Payer ID:Not on file Group ID:Not on file Type:Medicaid Address: [address] NET PARTIAL Member Subscriber Plan / Payer (Ef fective 2021-Present) Name:Shanae Deluna Relation to Subscriber:Self Name:Shanae Deluna Payer ID:Not on file Group ID:Not on file Type:Medicaid Address: [address] NET PARTIAL Member Subscriber Plan / Payer (Ef fective 2021-Present) Name:Shanae Deluna Relation to Subscriber:Self Name:Shanae Deluna Payer ID:Not on file Group ID:Not on file Type:Medicaid Address: [address] PARTIAL Member Subscriber Plan / Payer ( fective 2021-) Name:Shanae Deluna Relation to Subscriber:Self Name:Shanae Deluna Payer ID:Not on file Group ID:Not on file Type:Medicaid Address: [address] PARTIAL [facility] Address: [place] [id number] Care Teams Horse Trainer Relationship Specialty Start Date End Date Fidelina Ibarra MD [address] [place] [phone] PCP - General Internal Medicine 08/26/21 Additional Source Comments The information contained in this document represents components of the legal health record. It is not the complete legal health record.[facility]
== END 2025-02-11 10:06 | disposition home or self-care (01) ==
LOC: HO.HGI 09:38
PROVIDERS: Visit Provider Nurse Practitioner Family
DX: R10.11 Right upper quadrant pain (principal); K58.2 Mixed irritable bowel syndrome; R10.13 Epigastric pain; K21.9 Gastro-esophageal reflux disease without esophagitis
CPT/HCPCS: 99213

== ENCOUNTER → 2025-02-11 09:38 | Outpatient (BNVA) | payer OTHER, SELFPAY | PROVIDERS: Visit Provider Nurse Practitioner Family | DX: K21.9 Gastro-esophageal reflux disease without esophagitis (principal); R10.11 Right upper quadrant pain; K58.2 Mixed irritable bowel syndrome; R74.01 Elevation of levels of liver transaminase levels; R10.13 Epigastric pain | CPT/HCPCS: 99212 ==

== ENCOUNTER 2025-02-28 09:27 | Outpatient (REF) | payer OTHER, SELFPAY ==
[2025-02-28 11:18] LABS: Alanine Aminotransferase 38 U/L (0-31); Albumin Level 4.4 g/dL (3.5-5.0); Alkaline Phosphatase 69 U/L (39-117); Aspartate Amino Transferase 25 U/L (5-31); Total Protein 6.9 g/dL (6.5-8.0)
== END 2025-02-28 09:28 | disposition home or self-care (01) ==
LOC: HO.LAB 09:27
PROVIDERS: Visit Provider Nurse Practitioner Family
DX: R74.01 Elevation of levels of liver transaminase levels (principal)
CPT/HCPCS: 36415; 80076